=== PATIENT | male | born 1960 | race Caucasian/White ===

== ENCOUNTER → 2021-05-04 | Day surgery (SDC) | payer OTHER ==
[~2021-05-04] MED LIST: AMLODIPINE BESY10 MG PO; CEFTRIAXONE 1 GM VIAL ONE; CIALIS5 MG PO; MONTELUKAST SOD10 MG PO; OLOPATADINE HC2.5 ML OP; OMEPRAZOLE40 MG PO; ROPIVACAINE 0.5% 5 MG/ML 30 ML SDV ONE; SODIUM CHLORIDE 0.9% 50ML 100 ML ONE; SODIUM CHLORIDE 0.9% 50ML 50 ML ONE; XIIDRA1 EACH OP
[2021-05-04 10:32] VITALS: BP 126/78
== END | disposition home or self-care (01) ==
LOC: OR 08:18
PROVIDERS: ATTEND Orthopaedic Surgery
DX: S46.222A Laceration of muscle, fascia and tendon of other parts of biceps, left arm, initial encounter (principal); G47.33 Obstructive sleep apnea (adult) (pediatric); I45.10 Unspecified right bundle-branch block; I10 Essential (primary) hypertension; K21.9 Gastro-esophageal reflux disease without esophagitis; K28.9 Gastrojejunal ulcer, unspecified as acute or chronic, without hemorrhage or perforation; Z88.1 Allergy status to other antibiotic agents; Z01.810 Encounter for preprocedural cardiovascular examination; Z01.812 Encounter for preprocedural laboratory examination; Z20.822 Contact with and (suspected) exposure to COVID-19; Z86.19 Personal history of other infectious and parasitic diseases
CPT/HCPCS: 24342; 93005; J0690; J0696; J2795; U0002